=== PATIENT | female | born 1960 | race Caucasian/White ===

== ENCOUNTER 2019-04-05 04:59 | Emergency (ER) | payer MEDICARE, OTHER ==
[~2019-04-05] VITALS: Ht 175.3 cm; Wt 96.4 kg
[2019-04-05 05:54] LABS: HEMATOCRIT 39.5 % (37.0-47.0); IMMATURE GRANULOCYTES 0.6 % (0.0-5.0); MEAN CELL VOLUME 96.6 fL CALC (80.0-100.0); MEAN CORPUSCULAR HGB 31.8 pG CALC (26.0-32.0); MEAN CORPUSCULAR HGB CONC 32.9 g/L CALC (32.0-36.0); NEUT# 6.47 thou/uL (2.00-7.15); RED BLOOD COUNT 4.09 mill/uL (4.20-5.60); RED CELL DISTRI WIDTH 12.8 % (11.5-15.5)
[2019-04-05 06:14] LABS: ALBUMIN 4.1 g/dL (3.2-5.0); ALKALINE PHOSPHATASE 66 u/l (38-126); ANION GAP 12 (6-22 (CALC)); BILIRUBIN, TOTAL 0.6 mg/dL (0.0-1.4); BUN 9 mg/dL (7-17); BUN/CREATININE RATIO 13 (12-20 (CALC)); CARBON DIOXIDE 24 mmol/l (22-30); CHLORIDE 107 mmol/l (95-108); CREATININE 0.7 mg/dL (0.5-1.0); ETHYL ALCOHOL 0 mg/dl (0-30); GFR > 60 ML/MIN (>=60 (CALC)); GFR FOR AFR.AMER. > 60 ML/MIN (>=60 (CALC)); SGOT/AST 25 u/l (14-36); SODIUM 139 mmol/l (137-146)
[2019-04-05] MEDS ORDERED: TENORMIN PO (07:15)
[2019-04-05] MEDS ORDERED: HYDROXYCHLOR200 MG PO (07:15)
[2019-04-05] MEDS ORDERED: CIPROFLOXACIN500 M1 PO (07:17)
[2019-04-05] MEDS ORDERED: VITAMIN D50000 UNIT PO (07:17)
[2019-04-05] MEDS ORDERED: CALCIUM1250 MG PO (07:18)
[2019-04-05] MEDS ORDERED: CYMBALTA60 MG PO (07:19)
[2019-04-05 08:25] LABS: URINE BILIRUBIN - DIPSTICK NEGATIVE (NEGATIVE); URINE BLOOD DIPSTICK TRACE-INTACT (NEGATIVE); URINE COLOR YELLOW; URINE GLUCOSE - DIPSTICK NEGATIVE (NEGATIVE); URINE KETONE NEGATIVE (NEGATIVE); URINE LEUK ESTERASE NEGATIVE (NEGATIVE); URINE NITRITE - DIPSTICK NEGATIVE (Negative); URINE PROTEIN - DIPSTICK NEGATIVE (NEG-TRACE); URINE UROBILINOGEN - DIPSTICK 0.2 E.U./dL (0.2)
[2019-04-05 11:34] VITALS: BP 101/77
== END 2019-04-05 11:33 | disposition short-term general hospital (02) ==
LOC: ED 04:59
PROVIDERS: Emergency Medicine
DX: R55 Syncope and collapse (principal); S79.912A Unspecified injury of left hip, initial encounter; W06.XXXA Fall from bed, initial encounter; Y92.013 Bedroom of single-family (private) house as the place of occurrence of the external cause; S09.90XA Unspecified injury of head, initial encounter; S32.059A Unspecified fracture of fifth lumbar vertebra, initial encounter for closed fracture; I87.1 Compression of vein
CPT/HCPCS: Q9967

== ENCOUNTER 2020-02-20 13:10 | Emergency (ER) | payer MEDICARE, OTHER ==
[~2020-02-20] VITALS: Ht 175.3 cm; Wt 58.0 kg
[~2020-02-20 13:10] MED LIST: CALCIUM1250 MG PO; CIPROFLOXACIN500 M1 PO; CYMBALTA60 MG PO; HYDROXYCHLOR200 MG PO; TENORMIN PO; VITAMIN D50000 UNIT PO
[2020-02-20] MEDS ORDERED: FOLIC ACID1 M1 PO (14:28)
[2020-02-20] MEDS ORDERED: ATENOLOL25 MG PO (14:29)
[2020-02-20] MEDS ORDERED: TIZANIDINE HYDRO6 MG PO (14:29)
[2020-02-20] MEDS ORDERED: TRAZODONE50 MG PO (14:30)
[2020-02-20] MEDS ORDERED: MONTELUKAST SOD10 MG PO (14:30)
[2020-02-20] MEDS ORDERED: NORCO1 TA2 PO (14:32)
[2020-02-20] MEDS ORDERED: ALENDRONATE SOD70 MG PO (14:33)
[2020-02-20 15:05] VITALS: BP 118/62
== END 2020-02-20 15:05 | disposition home or self-care (01) ==
LOC: ED 13:10
DX: S69.91XA Unspecified injury of right wrist, hand and finger(s), initial encounter (principal); W01.0XXA Fall on same level from slipping, tripping and stumbling without subsequent striking against object, initial encounter; Y92.481 Parking lot as the place of occurrence of the external cause

== ENCOUNTER 2022-10-11 10:38 | Emergency (ER) | payer MEDICARE, OTHER ==
[2022-10-11] VITALS (9 sets, daily range): BP systolic 105–130; BP diastolic 49–91
[~2022-10-11] VITALS: Ht 175.3 cm; Wt 57.4 kg
[~2022-10-11 10:38] MED LIST changes: +ALENDRONATE SOD70 MG PO; +ATENOLOL25 MG PO; +FOLIC ACID1 M1 PO; +MONTELUKAST SOD10 MG PO; +NORCO1 TA2 PO; +TIZANIDINE HYDRO6 MG PO; +TRAZODONE50 MG PO
== END 2022-10-11 14:34 | disposition home or self-care (01) ==
LOC: ED 10:38
DX: M79.642 Pain in left hand (principal); Z98.1 Arthrodesis status